=== PATIENT | male | born 1975 | race Caucasian/White ===

== ENCOUNTER 2020-04-30 17:53 | Emergency (ER) | payer BC ==
[~2020-04-30] VITALS: Ht 172.7 cm; Wt 72.6 kg
[2020-04-30 17:59] VITALS: Ht 172.7 cm; Wt 72.6 kg
[2020-04-30 22:11] LABS: BASOPHIL % 0.3 % (0.2-1.5); PLATELET COUNT 189 x10^3mcL (152-348)
[2020-04-30 22:12] LABS: RED CELL DISTRIBUTION WIDTH 14.6 % (12.1-16.2)
[2020-04-30 22:20] LABS: CALCIUM 8.8 mg/dL (8.5-10.1); CARBON DIOXIDE 26.4 mmol/L (21-32); CHLORIDE SERUM 107 mmol/L (98-107); CREATININE SERUM 0.7 mg/dL (0.7-1.3); GFR1 > 60 mL/min; GLUCOSE SERUM 85 mg/dL (74-106); POTASSIUM SERUM 3.4 mmol/L (3.5-5.1); SODIUM SERUM 143 mmol/L (136-145)
[2020-04-30 22:23] LABS: ALBUMIN 3.7 g/dL (3.4-5.0); ALKALINE PHOSPHATASE 77 U/L (46-116); ALT/SGPT 20 U/L (16-63); AST/SGOT 9 U/L (15-37); BILIRUBIN TOTAL 0.55 mg/dL (0.20-1.00); TOTAL PROTEIN, SERUM 7.1 g/dL (6.4-8.2)
[2020-05-01] VITALS: BP 121/66
== END 2020-05-01 | disposition home or self-care (01) ==
LOC: ED 17:53
PROVIDERS: Emergency Medicine
DX: R53.1 Weakness (principal); Z86.73 Personal history of transient ischemic attack (TIA), and cerebral infarction without residual deficits; Z88.0 Allergy status to penicillin; Z95.0 Presence of cardiac pacemaker